=== PATIENT | male | born 1990 | race African-American/Black ===

== ENCOUNTER 2016-12-13 16:41 | Emergency (ER) | payer MEDICAID, OTHER ==
[~2016-12-13] VITALS: Ht 167.6 cm; Wt 86.0 kg
[2016-12-13 16:55] VITALS: BP 147/66
== END 2016-12-13 18:36 | disposition home or self-care (01) ==
LOC: ER 18:29
DX: L03.116 Cellulitis of left lower limb (principal)
CPT/HCPCS: 99283

== ENCOUNTER 2017-08-13 10:33 | Emergency (ER) | payer MEDICAID ==
[~2017-08-13] VITALS: Ht 162.6 cm; Wt 84.0 kg
[2017-08-13 10:47] VITALS: BP 121/80
== END 2017-08-13 13:44 | disposition left against medical advice (07) ==
LOC: ER 11:47
DX: R20.2 Paresthesia of skin (principal); Z53.21 Procedure and treatment not carried out due to patient leaving prior to being seen by health care provider